=== PATIENT | male | born 1955 | race Caucasian/White ===

== ENCOUNTER 2020-04-26 14:37 | Emergency (ER) | payer MEDICARE, SELFPAY ==
[2020-04-26] VITALS (30 sets, daily range): BP systolic 112–144; BP diastolic 59–75; PULSE 57–91; RESP 9–28; TEMP 36.7; O2SAT 93–97
--- NOTE | 2020-04-26 14:45 | RT.EKG_ITS ---
APPROVED REPORT Exam: Resting ECG Patient Location: E HR:69 bpm ECG Measurements Heart Rate 69 AXIS CA 165 P 42 QRSd 103 QRS -2 QT 432 T 17 QTc 464 Conclusion Sinus rhythm...normal P axis, V-rate 60- 99 Physician: No stemi, no significant elevation/depession
[2020-04-26] MEDS: Normal Saline 500 ML IV (15:18)
[2020-04-26] MEDS: methylPREDNISolone SUCC 125 MG VIAL IVP (15:18)
[2020-04-26] MEDS: FAMOTIDINE 20 MG/50 ML BAG 200 MG IVPB (15:18)
[2020-04-26] MEDS: diphenhydrAMINE 50 MG/ML VIAL 25 MG IVP (15:18)
--- NOTE | 2020-04-26 15:19 | W.ED.GENAD ---
Discharge Plan Disposition Patient Disposition: HOME Condition: Good Discharge Details Clinical Impression: Adverse reaction to vaccine Primary Care Provider: Cheryl Jones ED Provider: Jose Cabrales Home Meds and New Rx's Prescriptions: New diphenhydramine HCl [Benadryl] 25 mg capsule 25 mg PO Q6H Qty: 100 RF: 0 prednisone 50 MG tablet 50 mg PO DAILY Qty: 5 RF: 0 Continued metoprolol succinate 25 MG tablet extended release 24 hr 25 mg PO DAILY RF: 0 finasteride 5 MG tablet 5 mg PO DAILY RF: 0 cetirizine 10 MG tablet,chewable 10 mg PO DAILY RF: 0 Discontinued prednisone 10 MG tablet 10 mg PO DAILY RF: 0 Discharge Instructions Instructions: Anaphylaxis (ED) Additional Instructions: At this time he did not have an anaphylactic reaction, however you did have a mild reaction to your vaccine. Please take 25 mg of Benadryl every 6 hours, take the prednisone daily as directed. Please make sure to watch her sugars and avoid any high sugary foods. If you have no return of your symptoms after 2 days on the prednisone you can stop the prednisone. Please talk to your doctor about the risks and benefits of taking the second dose of the vaccine. If you notice any worsening of your symptoms, or any new symptoms such as vomiting, diarrhea, fever, chills, shortness of breath, chest pain, numbness, weakness, or fainting , please return immediately to the emergency department for reevaluation. Please follow up with your primary care provider as soon as possible for reassessment and reevaluation. As always, it was a pleasure participating in your medical care today. Referrals: Cheryl Jones [Primary Care Provider] - Discharge Data Discharge Date/Time-TO BE ENTERED AT DEPARTURE: 04/26/20 19:00 Medical Decision Making 65-year-old male with a past medical history of previous anaphylaxis to various medications, as well as hypertension, previous hernia repair, cardiac disease, who presents today for evaluation of potential vaccine side effect. Patient got his first Covid vaccine today at 1250. At 2:13 PM the patient developed tingling/numbness feeling in his bone of his nose, he also had some mild jaw numbness and tingling as well on the left. He did describe mild episode of shortness of breath which is otherwise resolved now. He did feel that his tongue felt a little funny. He denies any nausea vomiting or diarrhea. He denies any chest pain, chest tightness, bandlike sensation around the chest. He states his arms feel heavy but there is no line pain. No rash. No other complaints. Patient does report history of previous anaphylaxis to other medications. No antibiotics. No other complaints at this time. Physical exam demonstrates no evidence of angioedema swelling of the lips tongue or uvula, airway compromise, wheeze, Or rash. No signs of objective allergic reaction at this time. The patient still does have subjective numbness of the bone of his nose, however there is no decrease in sensation that can be appreciated currently. Airway is clear, vital signs are stable, no tachycardia or other abnormalities. Differential is highest for side effect/reaction from the vaccine, but no evidence of anaphylaxis. Will monitor the patient closely here, perform a cardiac eval admitted an abundance of precaution for atypical cardiac etiology causing his symptoms. He shows no signs of stroke, and has a normal neurologic exam with no indication for emergent imaging at this time. Patient has been given Solu-Medrol, Benadryl, and H2 nisreen. We will gently rehydrate, monitor closely and reassess. Patient has had greater than 3-hour observation., His symptoms have subjectively completely resolved. There is still no objective evidence of , difficulty breathing, or anaphylaxis whatsoever. With complete resolution of his symptoms after prolonged observation I feel patient is stable for discharge at this time. Will give recommendations for Benadryl and steroids for home use. He does have a history of diabetes and I discussed with him the importance of watching his sugars closely. If he is symptom-free after 2 days I feel he can stop taking his steroids. Discussed red flags which return. Discussed the importance of discussion with the PCP about the second vaccine. I have extensively reviewed the treatment plan and discharge instructions with the patient. I have addressed all patient concerns at this time. The patient was made aware of what symptoms to monitor for that would warrant a return to the emergency department. Discussed the plan with the patient, they demonstrate verbal understanding and agreement with our assessment and plan at this time. The documentation in this chart was dictated using [employer] dictation software. Please excuse any dictation errors. HPI General Date/Time Provider Initiated Documentation: 04/26/20 14:39. HPI Narrative: 65-year-old male with a past medical history of previous anaphylaxis to various medications, as well as hypertension, previous hernia repair, cardiac disease, who presents today for evaluation of potential vaccine side effect. Patient got his first Covid vaccine today at 1250. At 2:13 PM the patient developed tingling/numbness feeling in his bone of his nose, he also had some mild jaw numbness and tingling as well on the left. He did describe mild episode of shortness of breath which is otherwise resolved now. He did feel that his tongue felt a little funny. He denies any nausea vomiting or diarrhea. He denies any chest pain, chest tightness, bandlike sensation around the chest. He states his arms feel heavy but there is no line pain. No rash. No other complaints. Patient does report history of previous anaphylaxis to other medications. No antibiotics. No other complaints at this time Related Data Home Medications Medication Instructions Recorded Confirmed cetirizine 10 mg PO DAILY 03/18/14 03/18/14 finasteride 5 mg PO DAILY 03/18/14 03/18/14 metoprolol succinate 25 mg PO DAILY 03/18/14 03/18/14 diphenhydramine HCl [Benadryl] 25 mg PO Q6H #100 cap 04/26/20 prednisone 50 mg PO DAILY #5 tab 04/26/20 Previous Rx's Medication Instructions Recorded diphenhydramine HCl [Benadryl] 25 mg PO Q6H #100 cap 04/26/20 prednisone 50 mg PO DAILY #5 tab 04/26/20 Allergies Allergy/AdvReac Type Severity Reaction Status Date / Time neomycin Allergy Positive Unverified 04/26/20 14:49 test at [employer] [facility] Penicillins Allergy Anaphylaxsi Unverified 04/26/20 14:49 s tamsulosin HCl [From Flomax] Allergy Anaphylaxsi Unverified 04/26/20 14:49 s General Stated Complaint: Allergic DAVIE: 2 Review of Systems All systems reviewed & are unremarkable except as noted in HPI and below PFSH Social History Smoking/Tobacco Use Status: Never Smoking risk assessment performed?: Yes Drug use: Current Sobriety Do you feel safe at home: Yes Do you feel safe in your relationship?: Yes Exam Narrative Exam Narrative: 1.Const: Well-nourished, Well-developed, appearing stated age 2.Eyes: PERRL, no conjunctival injection, and symmetrical lids. 3.ENT: Atraumatic external nose and ears. Moist MM. Neck: Symmetric, trachea midline, No thyromegaly. No evidence of angioedema, Ludewig's angina, enlargement of the uvula, enlargement of the tongue, hyper secretions, swelling of the nose lips or face. Sensation is intact throughout all aspects of the face and nose and internal nose. 4.CVS: +S1/S2, No murmurs or gallops. Peripheral pulses 2+ and equal in all extremities. Brisk capillary refill in all extremities. 5.RESP: Unlabored respiratory effort. Clear to auscultation bilaterally. No wheezes rales or rhonchi 6.GI: Soft, Nontender/Nondistended, No hepatosplenomegaly. No guarding or rebound. 7.MSK: Normocephalic/Atraumatic, Extremities w/o deformity or ttp No cyanosis or clubbing, Normal movement of all extremities 8.Skin: Warm, Dry. No rashes or lesions. 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 Sensation grossly intact, no focal neurologic deficits. 10.Psych: (AAO) x3. Appropriate mood and affect Course Vital Signs Vital signs: Vital Signs Temperature 36.7 C 04/26/20 14:44 Pulse 68 04/26/20 14:44 Respiratory Rate 15 04/26/20 14:44 Blood Pressure 144/69 H 04/26/20 14:44 Pulse Oximetry 95 04/26/20 14:44 Temperature 36.7 C 04/26/20 14:44 Temperature Source Temporal Artery Scan 04/26/20 14:44 Pulse 68 04/26/20 14:44 Respiratory Rate 15 04/26/20 14:44 Respiratory Effort 04/26/20 14:50 Respiratory Pattern Normal 04/26/20 14:50 Blood Pressure 144/69 H 04/26/20 14:44 Blood Pressure Position Supine 04/26/20 14:44 Pulse Oximetry 95 04/26/20 14:44 Oxygen Delivery Method Room Air 04/26/20 14:44 Oxygen Flow Rate 0 04/26/20 14:44
[2020-04-26 15:22] LABS: Abs Immature Grans 0.09 10^3/uL (0.0-0.06); Absolute Basophil Count 0.04 10^3/uL (0.0-0.2); Absolute Eosinophil Count 0.37 10^3/uL (0.0-0.7); Absolute Lymphocyte Count 1.77 10^3/uL (1.2-3.4); Absolute Neutrophil Count 6.11 10^3/uL (1.2-6.7); Basophils % 0.4; HCT 45.6 % (40.0-50.0); HGB 15.3 g/dL (13.5-17.5); Lymphocytes % 19.3; MCH 30.7 pg (27.0-33.0); MCHC 33.6 % (32.0-36.0); MCV 91.4 fL (80-95); MPV 9.9 fL (8.0-11.0); Monocytes % 8.7; Neutrophils % 66.6; Nucleated RBC 0 %; Platelet Count 226 10^3/uL (130-400); RBC 4.99 10^6/uL (4.36-5.78); RDW-SD 40.4 fL; WBC 9.18 10^3/uL (4.4-10.8)
[2020-04-26 15:38] LABS: ALT 49 U/L (16-63); AST 21 U/L (15-37); Albumin 3.6 g/dL (3.4-5.0); Alkaline Phosphatase 83 U/L (46-116); Anion Gap 10.7 mmol/L (3-11); BUN 16 mg/dL (7-18); Bilirubin, Total 0.5 mg/dL (0.2-1.0); CO2 26.3 mmol/L (21.0-32.0); CREATININE 1.2 mg/dL (0.70-1.30); Calcium 8.9 mg/dL (8.5-10.1); Chloride 102 mmol/L (98-107); Glucose 131 mg/dL (74-106); Sodium 139 mmol/L (136-145); Total Protein 7.6 g/dL (6.4-8.2)
[2020-04-26 15:49] LABS: Troponin I < 0.05 ng/mL (<0.06)
== END 2020-04-26 19:00 | disposition home or self-care (01) ==
PROVIDERS: Emergency Provider Student in an Organized Health Care Education/Training Program; PCP Internal Medicine
DX: T88.1XXA Other complications following immunization, not elsewhere classified, initial encounter (principal); R20.2 Paresthesia of skin
CPT/HCPCS: 80053; 93005; 96374; 96375; 99284; 84484; 85025; 93010; J1200; J2930